=== PATIENT | female | born 1950 | race Caucasian/White ===

== ENCOUNTER → 2016-09-02 | Outpatient (CLI) | payer MEDICARE, OTHER ==
--- NOTE | 2016-09-02 12:05 | WOMENS IMAGING REPORT ---
EXAM DESCRIPTION: U/S THYROID/ST TIS HEAD NECK COMPLETED DATE/TIME: 09/02/2016 10:18 am REASON FOR STUDY: R59.0 R59.0 LOCALIZED ENLARGED LYMPH NODES Z12.31 ENCNTR SCREEN MAMMOGRAM FOR MA LIGNANT NEOPLASM OF ALEX COMPARISON: None. TECHNIQUE: Dynamic and static forrest-scale images acquired of the thyroid gland. Selected additional c olor/power Doppler images recorded. All images stored to PACS. Patient has a palpable abnormality in the left supraclavicular region. This area was also examined. LIMITATIONS: None. FINDINGS: RIGHT LOBE: Normal size, 3.4 x 1.5 x 1.5 cm in size. Homogeneous echotexture. No cystic or solid masses. LEFT LOBE: Normal size, 3.9 x 1.5 x 1.0 cm in size. Homogeneous echotexture. Dense peripherally sweta cified shadowing 9 mm nodule in the left mid pole gland, likely benign. ISTHMUS: Normal size, less than 3 mm in thickness. Homogeneous echotexture. No cystic or solid mass es. OTHER: Ultrasound over the left supraclavicular region was performed. No discrete cystic or solid no dules. No ectatic vessels. No focal findings IMPRESSION: Normal size thyroid gland with probably benign-densely calcified shadowing 9 mm nodule i n the left midpole gland. No discrete findings by ultrasound in the area of left supraclavicular palpable abnormality TECHNICAL DOCUMENTATION: JOB ID: [id number] [employer]- All Rights Reserved
--- NOTE | 2016-09-02 13:38 | WOMENS IMAGING REPORT ---
EXAM DESCRIPTION: BILAT SCREENING MAMMO W/CAD COMPLETED DATE/TIME: 09/02/2016 9:49 am REASON FOR STUDY: Z12.31, ROUTINE SCREENING MAMMO R59.0 LOCALIZED ENLARGED LYMPH NODES Z12.31 ENCN TR SCREEN MAMMOGRAM FOR MALIGNANT NEOPLASM OF ALEX COMPARISON: 08/06/2008 TECHNIQUE: Standard craniocaudal and mediolateral oblique views of each breast recorded using digita l acquisition. LIMITATIONS: None. FINDINGS: No masses, calcifications or architectural distortion. No areas of suspicion. Read with the assistance of CAD. .[facility] - R2 Cenova Version 1.3 .[facility] Imaging - R2 Cenova Version 1.3 .[facility] Imaging - R2 Cenova Version 2.4 .[facility] - R2 Cenova Version 2.4 .[facility] - R2 Counseling Psychologist Version 9.2 IMPRESSION: NORMAL MAMMOGRAM. BIRADS 1. BREAST DENSITY: b. There are scattered areas of fibroglandular density. BIRAD: 1 NEGATIVE RECOMMENDATION: ROUTINE SCREENING COMMENT: The patient has been notified of the results by letter per MQSA requirements. Additional no tification policies are in place for contacting patient with suspicious or incomplete findings. Quality ID #[id number]: The [place] [employer] recommends an annual screening mammogram for women aged 40 years or over. This facility utilizes a reminder system to ensure that all patients receive reminder letters, and/or direct phone calls for appointments. This includes reminders for routine scr eening mammograms, diagnostic mammograms, or other Breast Imaging Interventions when appropriate. Th is patient will be placed in the appropriate reminder system. The [place] [employer] (ACR) has developed recommendations for screening MRI of the breast s in certain patient populations, to be used in conjunction with mammography. Breast MRI surveillanc e may be appropriate for women with more than 20% lifetime risk of developing breast cancer as deter mined by genetic testing, significant family history of the disease, or history of mantle radiation f or Hodgkins Disease. ACR Practice Guidelines 2008. TECHNICAL DOCUMENTATION: FINDING NUMBER: (1) ASSESSMENT: (1) JOB ID: [id number] [employer]- All Rights Reserved
== END ==
LOC: WI 12:52
PROVIDERS: ATTEND Family Medicine
DX: R59.0 Localized enlarged lymph nodes (principal); Z12.31 Encounter for screening mammogram for malignant neoplasm of breast
CPT/HCPCS: 76536; G0202; 77067

== ENCOUNTER → 2016-09-16 | Outpatient (CLI) | payer MEDICARE, OTHER ==
--- NOTE | 2016-09-18 17:14 | XCELERA REPORT ---
[address] [address] Lower Extremity Arterial Evaluation Name: NANCIE JAMES Age: 65 yrs Gender: Female : 1950 Patient Status: Outpatient Patient Location: Study Date: 09/16/2016 08:09 AM Procedure: A color flow and duplex scan of the lower extremity arteries was performed bilaterally with velocity and waveform analysis. Reason For Study: PVD I73.9 Ordering Physician: ALEX HUSSEIN Performed By: Stone Massey Measurements and Calculations Right Left INTERFACE ENGINEER PSV 183.1 142.9 cm/sec Prox PFA PSV 87.5 87.7 cm/sec Prox SFA PSV 125.6 138.1 cm/sec Dist SFA PSV 118.6 142.9 cm/sec Dist ANJELICA PSV 37.5 71.7 cm/sec Dist [employer] PSV 40.6 75.9 cm/sec Sabas Pedis PSV 39.8 60.4 cm/sec Right Side Arterial Evaluation Normal velocity and triphasic waveforms noted from the Common Femoral artery to the Posterior Tibial artery .Biphasic in the Anterior Tibial artery. 0-19% stenosis at the Anterior Tibial artery. Ankle Brachial index is 1.20. Left Side Arterial Evaluation Normal velocity and triphasic waveforms noted from the Common Femoral artery to the Posterior Tibial artery .Biphasic in the Dorsalis Pedis artery. 0-19% stenosis at the Dorsalis Pedis artery. Ankle Brachial index is 1.16. Interpretation Summary Mild hemodynamically significant lesions in the bilateral lower extremities, on duplex imaging, at rest. : ALEX HUSSEIN > Medhat Guzmán
== END ==
LOC: SP 08:03
PROVIDERS: ATTEND Family Medicine
DX: I73.9 Peripheral vascular disease, unspecified (principal)
CPT/HCPCS: 93925

== ENCOUNTER → 2016-12-09 | Outpatient (CLI) | payer MEDICARE, OTHER ==
--- NOTE | 2016-12-09 14:40 | RADIOLOGY REPORT (SQ) ---
EXAM DESCRIPTION: CT LUNG CANCER SCREENING COMPLETED DATE/TIME: 12/09/2016 1:23 pm REASON FOR STUDY: PERSONAL HISTORY OF NICOTINE DEPENDENCY Z87.891 PERSONAL HISTORY OF NICOTINE DEPE NDENCE Has the patient had a Chest CT scan within the past year? No Was the patient offered tobacco cessation counseling? Yes Was the patient engaged in shared decision making for this test? Yes Does the patient have signs or symptoms of Lung Cancer? No Is the patient a smoker? No How many packs per year? 365 How many years since quitting smoking? 4 years Patients age: 66 COMPARISON: None. TECHNIQUE: Low Dose CT scan performed of the chest without intravenous contrast for purposes of scre ening for lung cancer. Images reviewed with lung, soft tissue and bone windows. Reconstructed coron al and sagittal MPR images reviewed. All images stored on PACS. All CT scanners at this facility use dose modulation, iterative reconstruction, and/or weight based d osing when appropriate to reduce radiation dose to as low as reasonably achievable (ALARA). [facility]: Dose Right [facility]: CareDose [facility]: Dose Right [facility]: Teradose 4D [facility]: Smart Technologies RADIATION DOSE: Up-to-date CT equipment and radiation dose reduction techniques were employed. CTDIv ol: 1.9 mGy. DLP: 73 mGy-cm. mGy. . LIMITATIONS: None FINDINGS: LUNGS AND PLEURA: No masses or nodules. No pleural effusion. There is a calcified pleu ral plaque in the posterior right lung apex. No pneumothorax. No scarring or interstitial changes. There is obstructive lung disease with enlarged airspaces at the bilateral lung apices. HILAR AND MEDIASTINAL STRUCTURES: No identified masses. No abnormal nodes. HEART AND VASCULAR STRUCTURES: No aortic aneurysm. No pericardial effusion. No cardiac devices. CORONARY ARTERY CALCIFICATIONS: No significant calcifications. UPPER ABDOMEN, THYROID, BONES, OTHER SOFT TISSUES: No significant findings. IMPRESSION: NO SIGNIFICANT FINDING IN THE LUNGS ON NON-CONTRASTED CHEST CT. NO OTHER CLINICALLY SIGNIFICANT/POTENTIALLY CLINICALLY SIGNIFICANT FINDINGS LUNGRADS: LUNGRADS: 1 NEGATIVE. NO NODULES, OR DEFINITELY BENIGN NODULES MODIFIER: NONE RECOMMENDATION: Continue annual screening with LDCT in 12 months. COMMENT: CRITERIA: No lung nodules. Nodules with specific calcifications: Complete, central, popcorn, concentric rings and fat containin g nodules. TECHNICAL DOCUMENTATION: JOB ID: [id number] Quality ID # [id number]: Final reports with documentation of one or more dose reduction techniques (e.g., Au tomated exposure control, adjustment of the mA and/or kV according to patient size, use of iterative reconstruction technique) 2010 [facility]
== END ==
LOC: RAD 13:06
PROVIDERS: ATTEND Family Medicine
DX: I10 Essential (primary) hypertension (principal); Z87.891 Personal history of nicotine dependence; F41.9 Anxiety disorder, unspecified; R60.0 Localized edema; J02.9 Acute pharyngitis, unspecified
CPT/HCPCS: G0297

== ENCOUNTER → 2017-02-15 | Outpatient (CLI) | payer MEDICARE, OTHER ==
[~2017-02-15] MED LIST: REGADENOSON INJ 0.4 MG/5 ML DISP.SYRIN IV ONE
--- NOTE | 2017-02-18 15:40 | DRAGON STRESS TEST REPORT ---
Intravenous Lexiscan Cardiolite stress test using single photon emmision computerized tomography. Date of procedure: 7. Ordering Provider: Dr. Eric Arango. Patient's status: Out Patient. Indication: Chest pain. Coronary risk factors: Age. Resting EKG: Sinus Rhythm. Within Normal Limits. Stress EKG: No changes of ischemia. The patient no chest pain or discomfort, and there were no arrhythmias seen. Reason for termination: Protocol. Conclusions: Normal EKG and hemodynamic response to IV Lexiscan. Nuclear data: At rest the patient was given 10.89 millicuries of technetium 99m sestamibi injected intravenously. As per protocol rest non gated SPECT images were obtained. Subsequently the patient was given intravenous Lexiscan at a dose of 0.4 mg in 5 mL intravenously, followed by flush with normal saline. Subsequently the stress dose of 33.7 millicuries of technetium 99m sestamibi was injected intravenously. As per protocol stress gated images were obtained. Nuclear interpretation: Review of images showed that all segments of the myocardium had normal perfusion at rest, and normal perfusion post stress with IV Lexiscan. All segments of the myocardium had normal motion, contraction, and thickening by gated study. T. I D. ratio was normal at 1.05. Computer read rest, and stress left ventricular ejection fraction were 66 %, and 63 %, respectively. Conclusion: 1. There is no scintigraphic evidence of Lexiscan induced myocardial ischemia. 2. There is no scintigraphic evidence of myocardial infarction/scar. Recommendations: Aggressive risk factor modification, and treating the underlying co- morbidities. [facility]
== END ==
LOC: RAD 08:04
PROVIDERS: ATTEND Internal Medicine Cardiovascular Disease
DX: R07.9 Chest pain, unspecified (principal)
CPT/HCPCS: 93017; 78452; A9500; J2785; Q9969

== ENCOUNTER → 2017-04-09 | Outpatient (CLI) | payer MEDICARE, OTHER ==
--- NOTE | 2017-04-09 11:46 | RADIOLOGY REPORT (SQ) ---
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 LIMITATIONS: Motion. FINDINGS: ALIGNMENT: Grade 1 anterolisthesis C5 relative to C4. VERTEBRAE: Intact. BONE MARROW: Reactive edema C6-7 endplates. DISCS: Desiccation multiple levels. HARDWARE: None in the spine. CORD AND BASE OF BRAIN: Normal in size and signal intensity. SOFT TISSUES: No soft tissue masses. C1-C2: No significant spinal stenosis. C2-C3: Mild spinal stenosis due to disc osteophyte complex and ligament thickening. C3-C4: Mild -moderate spinal stenosis due to disc osteophyte complex and ligament thickening. Modera te neural foraminal narrowing bilaterally. C4-C5: Mild-moderate spinal stenosis. Moderate right and severe left neural foraminal narrowing. C5-C6: Mild -moderate spinal stenosis. Moderate right and severe left neural foraminal narrowing. C6-C7: Mild-moderate spinal stenosis. Mild left neural foraminal narrowing. C7-T1: No significant spinal stenosis or exit foraminal stenosis. UPPER THORACIC: Incompletely imaged. No significant spinal stenosis or exit foraminal stenosis. OTHER: No other significant finding. IMPRESSION: Mild -moderate spinal stenosis at multiple levels. Mild malalignment. No evidence of a cute disc herniation. TECHNICAL DOCUMENTATION: JOB ID: [id number] [employer]- All Rights Reserved
== END ==
LOC: RAD 10:01
PROVIDERS: ATTEND Physician Assistant
DX: M50.30 Other cervical disc degeneration, unspecified cervical region (principal)
CPT/HCPCS: 72141

== ENCOUNTER → 2017-07-11 | Outpatient (CLI) | payer MEDICARE, OTHER ==
--- NOTE | 2017-07-11 14:57 | RADIOLOGY REPORT (SQ) ---
EXAM DESCRIPTION: MRI LUMBAR SPINE WITHOUT COMPLETED DATE/TIME: 07/11/2017 1:01 pm REASON FOR STUDY: M48.061 SPINAL STENOSIS, LUMBAR REGION WITHOUT NEUROGENIC SANJEEV M48.[address] ENOSIS, LUMBAR REGION WITHOUT NEUROGENIC CL COMPARISON: MRI lumbar spine 02/13/2016 TECHNIQUE: Sagittal and Axial imaging includes T1, T2, STIR and gradient echo sequences. Coronal T2/ HASTE imaging. LIMITATIONS: None. FINDINGS: VISUALIZED UPPER ABDOMEN: Limited evaluation. No acute or suspicious findings suggested. SEGMENTATION: No transitional anatomy. The lowest well-developed disc space is labeled L5-S1. ALIGNMENT: About 40 of convex leftward lumbar curvature is present from the top of L1 to the bottom of L5. VERTEBRAE: Intact. BONE MARROW: There are mixed sclerotic and fatty endplate changes from the T12-L1 disc level down thr ough the L3-4 level. DISC SIGNAL: Diffuse decreased T2 weighted intervertebral disc signal with disc space loss of height. POSTERIOR ELEMENTS: Generally intact. No pars defect evident. HARDWARE: None in the spine. CORD AND CONUS: Normal in size and signal intensity. Conus at the L1 level. SOFT TISSUES: No aortic aneurysm seen. No bulky retroperitoneal adenopathy or mass. No paraspinal mas s or fluid. T11-12: Mild diffuse posterior disc bulging. Moderate bilateral facet hypertrophy. No central sten osis. Mild bilateral foraminal narrowing. T12-L1: Mild diffuse posterior disc bulge and bony spurring. Moderate left, mild right facet arthro warren. Moderate left foraminal narrowing without exiting nerve root impingement. No significant rory tral or right foraminal narrowing. L1-L2: Asymmetric left paracentral foraminal and lateral disc bulge and asymmetric left-sided facet h ypertrophy causes moderate to high-grade left foraminal narrowing. No central stenosis or right fora gustavo narrowing. L2-L3: Broad diffuse posterior disc bulge and bony spurring is present with bilateral moderate facet and ligament hypertrophy. Mild central canal stenosis. Some flattening of the right thecal sac at t he takeoff of the proximal L3 nerve root in the lateral recess best shown on axial T2 image 11. Ther e is mild central canal narrowing at L2-3. Mild bilateral foraminal stenosis is present without defi nite exiting L2 nerve root impingement. L3-L4: Broad diffuse posterior disc bulge and bony spurring with bulky right and moderate left facet hypertrophy causes mild central canal stenosis with flattening of the thecal sac into a triangular sh ape. There is moderate right and mild left foraminal narrowing without definite exiting nerve root i mpingement. L4-L5: Moderate central canal stenosis results from broad diffuse posterior disc bulge and bony spurr ing and moderate bilateral facet and ligament hypertrophy. This is best shown on axial T2 image 21. There is moderate right and mild left foraminal narrowing without definite exiting L4 nerve root imp ingement. L5-S1: Broad diffuse posterior disc bulge and moderate bilateral facet and ligament hypertrophy. No central stenosis. Mild right, moderate left foraminal narrowing without exiting L5 nerve root imping ement. SACRUM: Visualized upper sacrum intact. OTHER: Sagittal STIR images demonstrate edema in the right L4 and L5 facet articular processes, and a long the left L4-5 facet joint. IMPRESSION: Multilevel degenerative changes. Edema along the lower lumbar facet joints as above TECHNICAL DOCUMENTATION: JOB ID: [id number] [employer]- All Rights Reserved Reading location - IP/workstation name: [facility]
== END ==
LOC: RAD 13:25
PROVIDERS: ATTEND Physician Assistant
DX: M48.061 Spinal stenosis, lumbar region without neurogenic claudication (principal)
CPT/HCPCS: 72148

== ENCOUNTER → 2018-06-26 | Outpatient (CLI) | payer MEDICARE, OTHER ==
--- NOTE | 2018-06-26 10:33 | WOMENS IMAGING REPORT ---
EXAM DESCRIPTION: U/S ABDOMEN LIMITED COMPLETED DATE/TIME: 06/26/2018 10:24 am REASON FOR STUDY: R10.11 RIGHT UPPER QUADRANT PAIN N63.10 UNSPECIFIED LUMP IN THE RIGHT BREAST, UNS PECIFIED HAROON R10.11 RIGHT UPPER QUADRANT PAIN R10.2 PELVIC AND PERINEAL PAIN COMPARISON: None. TECHNIQUE: Dynamic and static grayscale images acquired of the abdomen and recorded on PACS. Additio nal selected color Doppler and spectral images recorded. LIMITATIONS: None. FINDINGS: PANCREAS: No masses. Visualized pancreatic duct normal caliber. LIVER: Normal size Echo texture normal. No focal masses. LIVER VASCULATURE: Normal directional flow of the main portal vein and hepatic veins. GALLBLADDER: No stones. Normal wall thickness. No pericholecystic fluid. ULTRASOUND-DETECTED RUIZ'S SIGN: Negative. INTRAHEPATIC DUCTS AND COMMON DUCT: CBD and intrahepatic ducts normal caliber. No filling defects. INFERIOR VENA CAVA: Normal flow. AORTA: No aneurysm. RIGHT KIDNEY: Normal size. Normal echogenicity. No solid or suspicious masses. There is a simpl e 1.5 x 1.5 x 1.8 cm cyst. No hydronephrosis. No calcifications. PERITONEAL AND RIGHT PLEURAL SPACE: No ascites or effusions. OTHER: No other significant findings. IMPRESSION: Small right renal cyst. No other significant findings. TECHNICAL DOCUMENTATION: JOB ID: [id number]- All Rights Reserved Reading location - IP/workstation name: [email or web address]
--- NOTE | 2018-06-26 12:22 | WOMENS IMAGING REPORT ---
EXAM DESCRIPTION: BILAT DIAGNOSTIC MAMMO W/CAD; U/S BREAST UNILATERAL, COMPL COMPLETED DATE/TIME: 06/26/2018 9:34 am; 06/26/2018 10:24 am REASON FOR STUDY: N63.10 UNSPECIFIED LUMP IN THE RIGHT BREAST, UNSPECIFIED QUADRANT; N63.10 RIGHT BR EAST N63.10 UNSPECIFIED LUMP IN THE RIGHT BREAST, UNSPECIFIED HAROON R10.11 RIGHT UPPER QUADRANT PAIN R10.2 PELVIC AND PERINEAL PAIN COMPARISON: 09/02/2016 and 08/06/2008. TECHNIQUE: Standard craniocaudal and mediolateral oblique views of each breast recorded using digita l acquisition. Additional true lateral images of the right breast acquired. LIMITATIONS: None. FINDINGS: RIGHT BREAST MASSES: No suspicious masses. CALCIFICATIONS: No new or suspicious calcifications. ARCHITECTURAL DISTORTION: None. DEVELOPING DENSITY: None. ASYMMETRY: None noted. OTHER: No other significant findings. LEFT BREAST MASSES: No suspicious masses. CALCIFICATIONS: No new or suspicious calcifications. ARCHITECTURAL DISTORTION: None. DEVELOPING DENSITY: None. ASYMMETRY: None noted. OTHER: No other significant finding. Read with the assistance of CAD: .[facility] - R2 Cenova Version 1.3 .[facility] Imaging - R2 Cenova Version 2.1 .[facility] Imaging - R2 Cenova Version 2.4 .[facility] - R2 Cenova Version 2.4 .[facility] - R2 Rn Trauma Version 9.2 BREAST ULTRASOUND: TECHNIQUE: Static and dynamic grayscale images acquired of the entire right breast. Selected color Do ppler images recorded. ELASTOGRAPHY PERFORMED: No. LIMITATIONS: None. FINDINGS: MASS: No mass identified. Normal glandular tissue. ELASTOGRAPHY CHARACTERISTICS: Not applicable. OTHER: No other significant finding. IMPRESSION: Stable bilateral mammogram. No worrisome mammographic or sonographic findings in the ri ght breast. BREAST DENSITY: b. There are scattered areas of fibroglandular density. BIRAD: 1 Negative. RECOMMENDATION: RECOMMENDED FOLLOW UP: Birads 1 or 2: No breast imaging finding to explain the patie nt's presenting complaint. Further intervention should be based on the degree of clinical suspicion. SPECIFIC INTERVENTION/IMAGING/CONSULTATION RECOMMENDED:No additional intervention/ imaging/consultati on needed at this time. COMMUNICATION:The imaging findings were not discussed with the patient. Her referring provider has be en notified of the findings. COMMENT: The patient has been notified of the results by letter per SA requirements. Additional no tification policies are in place for contacting patient with suspicious or incomplete findings. Quality ID #225: The [place] [employer] recommends an annual screening mammogram for women aged 40 years or over. This facility utilizes a reminder system to ensure that all patients receive reminder letters, and/or direct phone calls for appointments. This includes reminders for routine scr eening mammograms, diagnostic mammograms, or other Breast Imaging Interventions when appropriate. Th is patient will be placed in the appropriate reminder system. The [place] [employer] (ACR) has developed recommendations for screening MRI of the breast s in certain patient populations, to be used in conjunction with mammography. Breast MRI surveillanc e may be appropriate for women with more than 20% lifetime risk of developing breast cancer as deter mined by genetic testing, significant family history of the disease, or history of mantle radiation f or Hodgkins Disease. ACR Practice Guidelines 2008. TECHNICAL DOCUMENTATION: FINDING NUMBER: (1) ASSESSMENT: (1) JOB ID: [id number] [employer]- All Rights Reserved Reading location - IP/workstation name: [email or web address]
--- NOTE | 2018-06-26 12:22 | WOMENS IMAGING REPORT ---
EXAM DESCRIPTION: BILAT DIAGNOSTIC MAMMO W/CAD; U/S BREAST UNILATERAL, COMPL COMPLETED DATE/TIME: 06/26/2018 9:34 am; 06/26/2018 10:24 am REASON FOR STUDY: N63.10 UNSPECIFIED LUMP IN THE RIGHT BREAST, UNSPECIFIED QUADRANT; N63.10 RIGHT BR EAST N63.10 UNSPECIFIED LUMP IN THE RIGHT BREAST, UNSPECIFIED HAORON R10.11 RIGHT UPPER QUADRANT PAIN R10.2 PELVIC AND PERINEAL PAIN COMPARISON: 09/02/2016 and 08/06/2008. TECHNIQUE: Standard craniocaudal and mediolateral oblique views of each breast recorded using digita l acquisition. Additional true lateral images of the right breast acquired. LIMITATIONS: None. FINDINGS: RIGHT BREAST MASSES: No suspicious masses. CALCIFICATIONS: No new or suspicious calcifications. ARCHITECTURAL DISTORTION: None. DEVELOPING DENSITY: None. ASYMMETRY: None noted. OTHER: No other significant findings. LEFT BREAST MASSES: No suspicious masses. CALCIFICATIONS: No new or suspicious calcifications. ARCHITECTURAL DISTORTION: None. DEVELOPING DENSITY: None. ASYMMETRY: None noted. OTHER: No other significant finding. Read with the assistance of CAD: .[facility] - R2 Cenova Version 1.3 .[facility] - R2 Cenova Version 2.1 .[facility] Imaging - R2 Cenova Version 2.4 .[facility] - R2 Cenova Version 2.4 .[facility] - R2 [employer] Version 9.2 BREAST ULTRASOUND: TECHNIQUE: Static and dynamic grayscale images acquired of the entire right breast. Selected color Do ppler images recorded. ELASTOGRAPHY PERFORMED: No. LIMITATIONS: None. FINDINGS: MASS: No mass identified. Normal glandular tissue. ELASTOGRAPHY CHARACTERISTICS: Not applicable. OTHER: No other significant finding. IMPRESSION: Stable bilateral mammogram. No worrisome mammographic or sonographic findings in the ri ght breast. BREAST DENSITY: b. There are scattered areas of fibroglandular density. BIRAD: 1 Negative. RECOMMENDATION: RECOMMENDED FOLLOW UP: Birads 1 or 2: No breast imaging finding to explain the patie nt's presenting complaint. Further intervention should be based on the degree of clinical suspicion. SPECIFIC INTERVENTION/IMAGING/CONSULTATION RECOMMENDED:No additional intervention/ imaging/consultati on needed at this time. COMMUNICATION:The imaging findings were not discussed with the patient. Her referring provider has be en notified of the findings. COMMENT: The patient has been notified of the results by letter per SA requirements. Additional no tification policies are in place for contacting patient with suspicious or incomplete findings. Quality ID #225: The [place] [employer] recommends an annual screening mammogram for women aged 40 years or over. This facility utilizes a reminder system to ensure that all patients receive reminder letters, and/or direct phone calls for appointments. This includes reminders for routine scr eening mammograms, diagnostic mammograms, or other Breast Imaging Interventions when appropriate. Th is patient will be placed in the appropriate reminder system. The [place] [employer] (ACR) has developed recommendations for screening MRI of the breast s in certain patient populations, to be used in conjunction with mammography. Breast MRI surveillanc e may be appropriate for women with more than 20% lifetime risk of developing breast cancer as deter mined by genetic testing, significant family history of the disease, or history of mantle radiation f or Hodgkins Disease. ACR Practice Guidelines 2008. TECHNICAL DOCUMENTATION: FINDING NUMBER: (1) ASSESSMENT: (1) JOB ID: [id number] [employer]- All Rights Reserved Reading location - IP/workstation name: [email or web address]
== END ==
LOC: WI 09:10
PROVIDERS: ATTEND Family Medicine
DX: R92.2 Inconclusive mammogram (principal); R10.11 Right upper quadrant pain
CPT/HCPCS: 76641; 76705; 77066

== ENCOUNTER → 2019-01-25 | Outpatient (CLI) | payer MEDICARE, OTHER ==
--- NOTE | 2019-01-25 11:05 | WOMENS IMAGING REPORT ---
EXAM DESCRIPTION: BONE DENSITY HIP/SPINE COMPLETED DATE/TIME: 01/25/2019 9:53 am REASON FOR STUDY: M81.0 AGE-RELATED OSTEOPOROSIS WITHOUT CURRENT PATHOLOGICAL FRACTURE M81.0 AGE-RE LATED OSTEOPOROSIS W/O CURRENT PATHOLOGICAL FRAC COMPARISON: 2003 TECHNIQUE: Dual-Energy X-ray Absorptiometry (DEXA) of the AP Spine and Hip. LIMITATIONS: None. FINDINGS: LUMBAR SPINE: The bone mineral density (BMD) measured from L1-L4 in the AP projection correlates with a T-score of 1.1, which is normal as defined by the World Health Organization. BMD Change vs Baseline: Not significant. Please note that the patient has scoliosis and vertebral b amanda endplate sclerosis HIP: The bone mineral density (BMD) measured in the left total hip correlates with a T-score of -1.2, whic h is osteopenic as defined by the World Health Organization. BMD Change vs Baseline: This is similar compared to previous exams 10 year Fracture Risk Assessment: Major Osteoporotic Fracture: 17% Hip Fracture: 2.8% IMPRESSION: 1. LUMBAR SPINE WHO CLASSIFICATION: Normal 2. HIP WHO CLASSIFICATION: Osteopenic OVERALL ASSESSMENT: WHO CLASSIFICATION: Osteopenic COMMENT: The World Health Organization defines low BMD as follows: T-score: Normal: Greater than -1.0 Osteopenia: Between -1.0 and -2.5 Osteoporosis: Less than -2.5 without fractures Established osteoporosis: Less than -2.5 with fractures In general, you may wish to consider: Diagnosis Treatment Follow-up DEXA Normal BMD Prevention 2-3 years Osteopenia Prevention/Therapy 1-2 years Osteoporosis Therapy Yearly TECHNICAL DOCUMENTATION: JOB ID: [id number] [employer]- All Rights Reserved Reading location - IP/workstation name: [email or web address]
== END ==
LOC: WI 09:14
PROVIDERS: ATTEND Family Medicine
DX: M81.0 Age-related osteoporosis without current pathological fracture (principal)
CPT/HCPCS: 77080

== ENCOUNTER → 2019-09-02 | Outpatient (CLI) | payer MEDICARE, OTHER ==
--- NOTE | 2019-09-03 12:02 | RADIOLOGY REPORT (SQ) ---
EXAM DESCRIPTION: CT LUNG CANCER SCREENING IMAGES COMPLETED DATE/TIME: 09/02/2019 1:42 pm REASON FOR STUDY: Z87.891 PERSONAL HISTORY OF NICOTINE DEPENDENCE Z87.891 PERSONAL HISTORY OF NICOT INE DEPENDENCE Has the patient had a Chest CT scan within the past year? N Was the patient offered tobacco cessation counseling? N Was the patient engaged in shared decision making for this test? Y Does the patient have signs or symptoms of Lung Cancer? N Is the patient a smoker? N How many pack years? 30+Y How many years since quitting smoking? 6M Patients age: 68Y COMPARISON: CT of the chest without contrast from 12/09/2016. TECHNIQUE: Low Dose CT scan performed of the chest without intravenous contrast for purposes of scre ening for lung cancer. Images reviewed with lung, soft tissue and bone windows. Reconstructed coron al and sagittal MPR images reviewed. All images stored on PACS. All CT scanners at this facility use dose modulation, iterative reconstruction, and/or weight based d osing when appropriate to reduce radiation dose to as low as reasonably achievable (ALARA). [facility]: Dose Right [facility]: CareDose [facility]: Dose Right [facility]: Teradose 4D [facility]: ZangZing RADIATION DOSE: CT Rad equipment meets quality standard of care and radiation dose reduction techniq ues were employed. CTDIvol: 1.4 mGy. DLP: 57 mGy-cm. . LIMITATIONS: None FINDINGS: LUNGS AND PLEURA: Unchanged calcified pleural plaque in the posterior aspect of the right apex and non-calcified pleural plaque in the lateral aspect of the left apex. There is re- demonstra tion of mild to moderate upper lobe predominant centrilobular and paraseptal emphysema. There is no associated bronchiectasis, honeycombing or mucus plugging. The calcified nodule in the right lower l obe (image 59 of series 3) is unchanged. There is no new or enlarging solid pulmonary nodule. HILAR AND MEDIASTINAL STRUCTURES: Evaluation is limited due to the absence of intravenous contrast. There is no adenopathy or mass. HEART AND VASCULAR STRUCTURES: The ascending thoracic aorta measures 3.7 x 3.7 cm. There is no cardi omegaly or pericardial effusion. CORONARY ARTERY CALCIFICATIONS: None. UPPER ABDOMEN, THYROID, BONES, OTHER SOFT TISSUES: No acute findings. IMPRESSION: NO SIGNIFICANT FINDING IN THE LUNGS ON NON-CONTRASTED CHEST CT. NO OTHER CLINICALLY SIGNIFICANT/POTENTIALLY CLINICALLY SIGNIFICANT FINDINGS LUNGRADS: LUNGRADS: 1 NEGATIVE. NO NODULES, OR DEFINITELY BENIGN NODULES MODIFIER: NONE RECOMMENDATION: Continue annual screening with LDCT in 12 months. COMMENT: CRITERIA: No lung nodules. Nodules with specific calcifications: Complete, central, popcorn, concentric rings and fat containin g nodules. TECHNICAL DOCUMENTATION: JOB ID: [id number] Quality ID # [id number]: Final reports with documentation of one or more dose reduction techniques (e.g., Au tomated exposure control, adjustment of the mA and/or kV according to patient size, use of iterative reconstruction technique) 2010 [facility] Reading location - IP/workstation name: [email or web address]
== END ==
LOC: RAD 12:46
PROVIDERS: ATTEND Family Medicine
DX: Z87.891 Personal history of nicotine dependence (principal)
CPT/HCPCS: G0297